=== PATIENT | female | born 1965 | race Caucasian/White ===

== ENCOUNTER → 2016-09-05 | Outpatient (CLI) | payer OTHER ==
--- NOTE | 2016-09-06 10:49 | XR ---
Lumbosacral spine HISTORY: Low back pain 5 views of the lumbosacral spine No comparisons There is no spondylolysis or spondylolisthesis. Lumbar vertebral bodies show preserved height and bon e mineralization. There is multilevel spondylosis, loss of disc height and intervertebral levels. IMPRESSION: Degenerative disc disease. Consider lumbar MRI
== END | disposition home or self-care (01) ==
LOC: RADXRYALE 14:54
PROVIDERS: ATTEND Internal Medicine
DX: M51.37 Other intervertebral disc degeneration, lumbosacral region (principal); M62.830 Muscle spasm of back
CPT/HCPCS: 72110

== ENCOUNTER → 2016-09-21 | Outpatient (CLI) | payer OTHER ==
--- NOTE | 2016-09-21 11:08 | MR ---
EXAMINATION TYPE: MR lumbar spine wo con DATE OF EXAM: 09/21/2016 COMPARISON: Plain film 09/05/2016 HISTORY: Low back pain TECHNIQUE: Multiplanar, multisequence images of the lumbar spine were acquired. L1-L2: Normal disc appearance without desiccation. No herniation, protrusion or disc bulging. No ca nal stenosis is present. Foramina are patent bilaterally. L2-L3: Posterior broad-based disc bulge causes mild anterior mass effect on the thecal sac. Facet art hropathy with hypertrophy of the ligamentum flavum causes some posterior lateral mass effect on the t hecal sac. No significant central stenosis. L3-L4: Broad-based posterior disc bulge causes anterior mass effect on the thecal sac. Facet arthropa thy causes some encroachment on the lateral recesses. No significant foraminal encroachment or centra l stenosis. L4-L5: Broad-based posterior disc bulge causes anterior mass effect on the thecal sac. There is abnor mal soft tissue signal in the left neural foramen with mass effect on the lateral aspect of the theca l sac from the left. No significant canal stenosis. There is facet arthropathy with hypertrophy of th e ligamentum flavum encroaching on the lateral recesses. L5-S1: Normal disc appearance without desiccation. No herniation, protrusion or disc bulging. No ca nal stenosis is present. Foramina are patent bilaterally. Lumbar segments are intact. No paraspinal masses are identified. Conus medullaris has a normal appe arance. There is mild spinal curvature. Multilevel spondylosis, endplate discogenic marrow signal loren nge is noted. There is associated loss of disc height and signal greatest at L4-5, L3-4. IMPRESSION: Suspect there may be a lateral disc herniation or sequestered fragment within the left neural foramen L4-5, correlate for left L4 radiculopathy. Degenerative disc disease, facet arthropathy as described . Contrast-enhanced lumbar MRI may be of benefit. Mild spinal curvature.
== END | disposition home or self-care (01) ==
LOC: RADMRIMAIN 09:47
PROVIDERS: ATTEND Internal Medicine
DX: M51.36 Other intervertebral disc degeneration, lumbar region (principal); M46.86 Other specified inflammatory spondylopathies, lumbar region
CPT/HCPCS: 72148

== ENCOUNTER → 2016-09-21 | Outpatient (CLI) | payer OTHER ==
--- NOTE | 2016-09-22 10:14 | MM ---
Reason for exam: screening (asymptomatic). Last mammogram was performed 2 years and 9 months ago. Physical Findings: A clinical breast exam by your physician is recommended on an annual basis and results should be correlated with mammographic findings. MG Screening Mammo w CAD Bilateral CC and MLO view(s) were taken. Prior study comparison: December 09, 2013, bilateral MG screening mammo w CAD. The breast tissue is heterogeneously dense. This may lower the sensitivity of mammography. There is no discrete abnormality. ASSESSMENT: Negative, BI-RAD 1 RECOMMENDATION: Routine screening mammogram of both breasts in 1 year.
== END | disposition home or self-care (01) ==
LOC: RADMAMWWP 10:28
PROVIDERS: ATTEND Internal Medicine
DX: Z12.31 Encounter for screening mammogram for malignant neoplasm of breast (principal)

== ENCOUNTER → 2018-07-16 | Outpatient (CLI) | payer OTHER ==
--- NOTE | 2018-07-16 11:33 | XR ---
EXAMINATION TYPE: XR chest 2V DATE OF EXAM: 07/16/2018 COMPARISON: Chest x-ray August 11, 2014 HISTORY: COPD per order. History of tobacco use. TECHNIQUE: Frontal and lateral views of the chest are obtained. FINDINGS: There is no focal air space opacity, pleural effusion, or pneumothorax seen. Lateral view suspect underlying emphysematous change with increased retrosternal airspace and flattened hemidiaph ragms similar to prior. The cardiac silhouette size is within normal limits. S-shaped scoliotic curva ture is present. IMPRESSION: No suspicious acute pulmonary process. No significant change from prior.
== END ==
LOC: RADXRYALE 11:21
PROVIDERS: ATTEND Internal Medicine
DX: J44.9 Chronic obstructive pulmonary disease, unspecified (principal)
CPT/HCPCS: 71046

== ENCOUNTER → 2018-08-20 | Outpatient (CLI) | payer OTHER ==
--- NOTE | 2018-08-21 14:21 | MM ---
Reason for exam: screening (asymptomatic). Last mammogram was performed 1 year and 11 months ago. Physical Findings: A clinical breast exam by your physician is recommended on an annual basis and results should be correlated with mammographic findings. MG 3D Screening Mammo W/Cad Bilateral CC and MLO view(s) were taken. Prior study comparison: September 21, 2016, bilateral MG screening mammo w CAD. December 09, 2013, bilateral MG screening mammo w CAD. The breast tissue is heterogeneously dense. This may lower the sensitivity of mammography. Finding: There are stable, fine, regional calcifications in the right breast. No significant changes in finding since September 21, 2016 and December 09, 2013. ASSESSMENT: Benign, BI-RAD 2 RECOMMENDATION: Routine screening mammogram of both breasts in 1 year.
== END | disposition home or self-care (01) ==
LOC: RADMAMWWP 10:45
PROVIDERS: ATTEND Internal Medicine
DX: Z12.31 Encounter for screening mammogram for malignant neoplasm of breast (principal)
CPT/HCPCS: 77063; 77067

== ENCOUNTER → 2018-09-17 | Outpatient (CLI) | payer OTHER ==
--- NOTE | 2018-09-17 11:36 | XR ---
EXAMINATION TYPE: XR ribs LT w pa chest xray DATE OF EXAM: 09/17/2018 CLINICAL HISTORY: Left rib pain after fall TECHNIQUE: Single frontal view of the chest is obtained. Oblique and frontal views of the left ribs w ere also obtained. COMPARISON: 07/16/2018 FINDINGS: There is no focal air space opacity, pleural effusion, or pneumothorax seen. There is stra ndy right basilar linear platelike atelectasis. The cardiac silhouette size is within normal limits. Acute nondisplaced fracture of the lateral margin of rib 10 on the left. Mild multilevel degenerative changes of the spine are noted. IMPRESSION: Acute nondisplaced fracture of the lateral margin of rib 10 on the left. Platelike right basilar subsegmental atelectasis is also seen.
== END | disposition home or self-care (01) ==
LOC: RADXRYALE 09:58
PROVIDERS: ATTEND Internal Medicine
DX: S22.32XA Fracture of one rib, left side, initial encounter for closed fracture (principal)

== ENCOUNTER → 2018-10-11 | Outpatient (CLI) | payer OTHER ==
[2018-10-11 11:34] VITALS: BP 118/82; PULSE 90; RESP 16; TEMP 98.6; BMI 23.6
--- NOTE | 2018-10-11 12:06 | P.GSHP ---
History of Present Illness H&P Date: 10/11/18 Chief Complaint: fibrocystic bresat changes Kinza is a 53-year-old white female with very dense breast. She comes for breast evaluation. She states that approximately 2 months ago she had some fullness in the left breast in the lateral area which has since dissipated. He does not complain the pain in her breasts. Her last mammogram was on 5618. This revealed heterogeneously dense breast tissue. There was stable sign regional calcifications in the right breast was sensed 2013. This was a [facility]-2 with repeat mammogram in 1 year recommended. She has no history of any recent trauma or infection in her breast. She does drink 16 ounces of coffee a day. She does not drink pop or tea. She smokes /2/PPD for 25 years, she is exposed to second hand smoke. She eats chocolate weekly. She is not taking any hormones. She still has menstrual periods although they are irregular. She does not have any cyclical change in the density of her breasts related to her periods. Family history: 1.mother: renal, mets 2. father: colon, took his bladder, lung Hormonal History: menarche: 13 G0 Perimenopausal left this time BCP: used them a5 years homones: none Past surgical history: 1.tubal 2. plate in right leg secondary to trauma Medical History: HTN Social History: Smoke: Half a pack per day for 25 years Alcohol: Once a week Drugs: Negative - Constitutional Constitutional: Denies chills, Denies fever - EENT Eyes: denies blurred vision, denies pain Ears: deny: decreased hearing, tinnitus Ears, nose, mouth and throat: Denies headache, Denies sore throat - Breasts Breasts: bilateral: as per HPI - Cardiovascular Cardiovascular: Reports high blood pressure, Denies chest pain, Denies shortness of breath - Respiratory Comment: smoker - Gastrointestinal Comment: Colonoscopy scheduled Gastrointestinal: Reports diarrhea, Denies abdominal pain, Denies nausea, Denies vomiting - Genitourinary (Female) Genitourinary: Denies dysuria, Denies hematuria - Menstruation Comment: perimenopausal - Musculoskeletal Musculoskeletal: Denies myalgias - Integumentary Integumentary: Denies pruritus, Denies rash - Neurological Neurological: Denies numbness, Denies weakness - Psychiatric Psychiatric: Denies anxiety, Denies depression - Endocrine Endocrine: Denies fatigue, Denies weight change - Hematologic/Lymphatic Comment: none - Allergic/Immunologic Allergic/Immunologic: Reports seasonal allergies Past Medical History History of Any Multi-Drug Resistant Organisms: None Reported Smoking Status: Current every day smoker Medications and Allergies Home Medications Medication Instructions Recorded Confirmed Type Ibuprofen 10/11/18 History Lisinopril [Prinivil] 5 mg PO 10/11/18 History Allergies Allergy/AdvReac Type Severity Reaction Status Date / Time No Known Allergies Allergy Unverified 10/11/18 11:34 Surgical - Exam Vital Signs Temp Pulse Resp BP Pulse Ox 98.6 F 90 16 118/82 97 10/11/18 11:30 10/11/18 11:30 10/11/18 11:30 10/11/18 11:30 10/11/18 11:30 BMI 23.6 - General well developed, well nourished, no distress - Eyes normal ocular movement - ENT no hearing loss, no congestion - Neck no masses, trachea midline - Respiratory Left 10th rib posterior fracture site with palpable fullness at this site normal respiratory effort, clear to auscultation - Cardiovascular Rhythm: regular Heart Sounds: normal: S1, S2 - Abdomen Abdomen: soft, non tender, no guarding, no rigid, no rebound - Integumentary normal turgor, dark nevis left bra line posterior - Neurologic no disoriented, no combative - Musculoskeletal normal gait, normal posture - Psychiatric oriented to time, oriented to person, oriented to place, speech is normal, memory intact breast exam: right breast: Multiple positional exam fibrocystic changes, no dominant masses or nodules of concern Right axilla: No adenopathy of concern Left breast: Multiple positional exam fibrocystic changes, no dominant masses or nodules of concern Left axilla: No adenopathy of concern Examination reveals several dark nevi on the left bra line area for which excision of the darkness has been recommended Results Mammogram results reviewed Assessment and Plan Assessment: Impression: 1. Dense breast on mammogram 2. Fibrocystic breast changes 3. Family history of cancer 4. Recent left rib fracture healing at this time 5. smoker 6. Patent left breast pain resolved 7. skin lesion left posterior chest wall at bra site 8. No evidence of any breast cancer on examination We have discussed caffeine and nicotine as substances that can exacerbate fibrocystic breast changes. The patient is going to attempt to decrease her intake of these. Plan: 1. Repeat bilateral mammogram in 1 year with physician exam at that time 2. Excision of skin lesion of concern CC: Dr. Tripathi
== END ==
LOC: WWCWWP 10:58
PROVIDERS: ATTEND Surgery
DX: Z53.9 Procedure and treatment not carried out, unspecified reason (principal)

== ENCOUNTER → 2021-09-15 | Outpatient (CLI) | payer OTHER ==
--- NOTE | 2021-09-15 10:57 | XR ---
EXAMINATION TYPE: XR cervical spine comp DATE OF EXAM: 09/15/2021 COMPARISON: NONE HISTORY: Pain TECHNIQUE: Four views are submitted. FINDINGS: The odontoid is intact. There are no compression deformities. The prevertebral soft tissue structur es are within normal limits. Severe degenerative disc disease with posterior spondylosis C4-5, C5-6 and C6-C7. Foraminal encroachment C5-C6 bilaterally. IMPRESSION: 1. Severe degenerative disc disease C4-5, C5-6 and C6-C7 with foraminal encroachment as discussed abo west. Recommend follow-up MRI.
== END | disposition home or self-care (01) ==
LOC: RADXRYALE 10:37
PROVIDERS: ATTEND Internal Medicine
DX: M50.323 Other cervical disc degeneration at C6-C7 level (principal)
CPT/HCPCS: 72050

== ENCOUNTER → 2022-03-14 | Outpatient (CLI) | payer OTHER ==
--- NOTE | 2022-03-15 09:21 | MM ---
Reason for Exam: Screening (asymptomatic). Last mammogram was performed 3 year(s) and 6 month(s) ago. Patient History: Menarche at age 14. Postmenopausal. Risk Values: Nydia 5 year model risk: 0.8%. NCI Lifetime model risk: 6.0%. Prior Study Comparison: 12/09/2013 Bilateral Screening Mammogram, [facility]. 09/21/2016 Bilateral Screening Mammogram, [facility]. 08/20/2018 Bilateral Screening Mammogram, [facility]. Tissue Density: There are scattered fibroglandular densities. Findings: Analyzed By CAD. Benign-appearing bilateral axillary lymph nodes are redemonstrated. Occasional scattered benign-appearing round tiny calcification throughout the bilateral breasts is redemonstrated. There is no suspicious new group of microcalcifications or new suspicious mass in either breast. Overall Assessment: Benign, BI-RAD 2 Management: Screening Mammogram of both breasts in 1 year. A clinical breast exam by your physician is recommended on an annual basis and results should be correlated with mammographic findings. Electronically signed and approved by: Pankaj Barkley M.D.
== END | disposition home or self-care (01) ==
LOC: RADMAMWWP 11:19
PROVIDERS: ATTEND Internal Medicine
DX: Z12.31 Encounter for screening mammogram for malignant neoplasm of breast (principal); Z78.0 Asymptomatic menopausal state
CPT/HCPCS: 77063; 77067